=== PATIENT | female | born 1995 | race Two or more races ===

== ENCOUNTER 2020-07-03 10:57 | Emergency (ER) | payer MEDICAID ==
[~2020-07-03] VITALS: Ht 175.3 cm; Wt 68.0 kg
[2020-07-03 11:03] VITALS: BP 109/74
[2020-07-03] MEDS ORDERED: CLIN150C16 PO (11:24)
[2020-07-03] MEDS ORDERED: SULF1TAB48 PO (11:24)
[2020-07-03] MEDS ORDERED: ONDA4TAB11 PO (17:18)
[2020-07-03] MEDS ORDERED: IBUP-1957 PO (17:18)
[2020-07-03] MEDS ORDERED: HYDR-3972 PO (17:18)
== END 2020-07-03 11:33 | disposition home or self-care (01) ==
LOC: ER 10:57
DX: L03.213 Periorbital cellulitis (principal); Z88.0 Allergy status to penicillin; Z79.899 Other long term (current) drug therapy

== ENCOUNTER 2020-07-03 16:26 | Emergency (ER) | payer MEDICAID ==
[~2020-07-03] VITALS: Ht 175.3 cm; Wt 68.0 kg
[~2020-07-03 16:26] MED LIST: CLIN150C16 PO; SULF1TAB48 PO
[2020-07-03 16:36] VITALS: BP 130/76
[2020-07-03] MEDS ORDERED: HYDROCODONE/APAP 5/325MG TABLET ONE (17:18)
[2020-07-03] MEDS ORDERED: ONDANSETRON 4 MG TAB.RAPDIS ONE (17:18)
[2020-07-03] MEDS ORDERED: IBUP-1957 PO (17:18)
[2020-07-03] MEDS ORDERED: ONDA4TAB11 PO (17:18)
[2020-07-03] MEDS ORDERED: HYDR-3972 PO (17:18)
[2020-07-03] MEDS ORDERED: LIDOCAINE /MPF 1% VIAL 5 ML VIAL ONE (17:28)
[2020-07-03] MEDS ORDERED: CEFTRIAXONE 1 G VIAL ONE (17:28)
[2020-07-03] MEDS ORDERED: ONDANSETRON 4 MG TAB.RAPDIS SL ONE (17:30)
[2020-07-03] MEDS ORDERED: CEFTRIAXONE 1 G VIAL IM ONE (17:30)
[2020-07-03] MEDS ORDERED: HYDROCODONE/APAP 5/325MG TABLET PO ONE (17:30)
--- NOTE | 2020-07-03 17:38 | NUR ---
Patient discharged to home in stable condition. Written and verbal after care instructions given. Patient verbalizes understanding of instruction.
== END 2020-07-03 17:38 | disposition home or self-care (01) ==
LOC: ER 16:33
DX: L03.213 Periorbital cellulitis (principal); Z88.0 Allergy status to penicillin; Z79.899 Other long term (current) drug therapy
CPT/HCPCS: 96372; 99283; J0696; J3490; Q0162